=== PATIENT | male | born 1940 | race Caucasian/White ===

== ENCOUNTER 2022-09-28 12:01 | Emergency (ER) | payer MEDICARE, OTHER ==
[~2022-09-28] VITALS: Ht 177.8 cm; Wt 88.6 kg
[2022-09-28] MEDS ORDERED: TENO1TAB2 PO (12:14)
[2022-09-28] MEDS ORDERED: POTA-136 PO (12:14)
[2022-09-28 13:05] LABS: VENOUS BASE EXCESS 1.9 (-2.0-2.0); VENOUS HCO3 29.3 MEQ/L (23.0-27.0); VENOUS O2 SATURATION 49.8 % (60.0-80.0); VENOUS PARTIAL PRESSURE CO2 56.5 mmHg (38.0-50.0); VENOUS PARTIAL PRESSURE O2 28.1 mmHg (30.0-50.0); VENOUS PH 7.333 UNITS (7.330-7.430); VENOUS STANDARD HCO3 24.8 MEQ/L; VENOUS TOTAL CO2 31.1 MEQ/L (24.0-28.0)
[2022-09-28 13:13] LABS: BASO % 0.4 % (0.0-1.0); EOS # 0.1 10^3/uL (0.0-0.5); EOS % 1.7 % (0.0-3.0); HEMATOCRIT 46.2 % (42.0-52.0); HEMOGLOBIN 15.1 g/dl (13.5-17.5); LYMPH # 1.1 10^3/uL (1.5-5.0); LYMPH % 13.8 % (24.0-44.0); MEAN CORPUSCULAR HEMOGLOBIN 29.3 pg (27.0-33.0); MEAN CORPUSCULAR HGB CONC 32.7 g/dl (32.0-36.5); MEAN CORPUSCULAR VOLUME 89.5 fl (80.0-96.0); MONO # 0.5 10^3/uL (0.0-0.8); NEUTROPHILS # 6.2 10^3/uL (1.5-8.5); NEUTROPHILS % 77.7 % (36.0-66.0); PLATELET COUNT, AUTOMATED 204 10^3/uL (150-450); RED BLOOD COUNT 5.16 10^6/uL (4.30-6.10)
[2022-09-28 13:38] LABS: CK-MB VALUE MASS < 1.0 NG/ML (<3.6)
[2022-09-28 13:40] LABS: ALBUMIN 3.7 G/DL (3.2-5.2); ALKALINE PHOSPHATASE 73 U/L (46-116); ALT/SGPT 13 U/L (7.0-40); AST/SGOT 13 U/L (<34); BILIRUBIN,DIRECT 0.5 MG/DL (<0.4); BILIRUBIN,TOTAL 1.2 MG/DL (0.3-1.2); BLOOD UREA NITROGEN 20 MG/DL (9-23); CALCIUM LEVEL 8.8 MG/DL (8.3-10.6); CARBON DIOXIDE LEVEL 30 MMOL/L (20-31); CHLORIDE LEVEL 106 MMOL/L (98-107); CPK CREATINE PHOSPHOKINASE 31 U/L (46-171); CREATININE FOR GFR 0.82 MG/DL (0.70-1.30); GLOMERULAR FILTRATION RATE > 60.0 (>35); GLUCOSE, FASTING 116 MG/DL (74-106); MB/CK RELATIVE INDEX 3.22 (< OR =4); POTASSIUM SERUM 3.7 MMOL/L (3.5-5.1); SODIUM LEVEL 140 MMOL/L (136-145); TOTAL PROTEIN 6.9 G/DL (5.7-8.2)
[2022-09-28 13:41] LABS: THYROID STIMULATING HORMONE 3.185 uIU/ML (0.55-4.78); THYROXINE (T4) 8.5 UG/DL (4.5-10.9)
[2022-09-28] MEDS ORDERED: ISOVUE-370 76% 100ML VIAL As Ordered ONE (13:49)
[2022-09-28 14:48] LABS: CK-MB VALUE MASS < 1.0 NG/ML (<3.6)
[2022-09-28 14:49] LABS: CPK CREATINE PHOSPHOKINASE 36 U/L (46-171); MB/CK RELATIVE INDEX 2.77 (< OR =4)
[2022-09-28] MEDS: FUROSEMIDE 40MG/4ML VIAL IV ONE ×2 (15:50→16:25)
[2022-09-28] MEDS ORDERED: ALEV220T22 PO (16:13)
[2022-09-28] MEDS ORDERED: HOME MED LIST COMPLETE! XX SCH (16:15)
[2022-09-28 16:38] VITALS: BP 193/99
[2022-09-28] MEDS ORDERED: FURO20TA2 PO (16:49)
== END 2022-09-28 17:07 | disposition home or self-care (01) ==
LOC: M ED 12:01
DX: I50.9 Heart failure, unspecified (principal); J94.9 Pleural condition, unspecified; I31.39 Other pericardial effusion (noninflammatory); Z79.899 Other long term (current) drug therapy
CPT/HCPCS: 71045; 71275; 80048; 80076; 82550; 82553; 82803; 83605; 83880; 84436; 84443; 84484; 85025; 87040; 87486; 87581; 87633; 87798; 93005; 93041; 94760; 96374; 99285; Q9967

== ENCOUNTER → 2022-11-01 | Outpatient (CLI) | payer MEDICARE ==
[~2022-11-01] MED LIST: ALEV220T22 PO; FURO20TA2 PO; POTA-136 PO; TENO1TAB2 PO
== END ==
LOC: M RAD 10:33
DX: R59.0 Localized enlarged lymph nodes (principal)

== ENCOUNTER 2023-03-28 08:09 | Inpatient (IN) | payer MEDICARE ==
[~2023-03-28] VITALS: Ht 177.8 cm; Wt 78.5 kg
[2023-03-28] MEDS ORDERED: CARV25TA PO (08:31)
[2023-03-28] MEDS ORDERED: ENTR1TAB PO (08:33)
[2023-03-28 09:20] LABS: BASO % 0.5 % (0.0-1.0); EOS # 0.1 10^3/uL (0.0-0.5); EOS % 2.1 % (0.0-3.0); HEMATOCRIT 44.6 % (42.0-52.0); HEMOGLOBIN 14.4 g/dl (13.5-17.5); LYMPH # 0.6 10^3/uL (1.5-5.0); LYMPH % 9.9 % (24.0-44.0); MEAN CORPUSCULAR HGB CONC 32.3 g/dl (32.0-36.5); MEAN CORPUSCULAR VOLUME 89.7 fl (80.0-96.0); MONO # 0.4 10^3/uL (0.0-0.8); MONO % 7.4 % (2.0-8.0); NEUTROPHILS # 4.7 10^3/uL (1.5-8.5); NEUTROPHILS % 79.6 % (36.0-66.0); PLATELET COUNT, AUTOMATED 172 10^3/uL (150-450); RED BLOOD COUNT 4.97 10^6/uL (4.30-6.10); WHITE BLOOD COUNT 5.8 10^3/uL (4.0-10.0)
[2023-03-28] MEDS ORDERED: ENTRESTO 24-26MG TABLET (SACUBITRIL/VALSARTAN) PO ONE (09:20)
[2023-03-28] MEDS ORDERED: CARVedilol 12.5 MG TAB PO ONE (09:20)
[2023-03-28 09:30] LABS: LIPASE 26 U/L (12-53)
[2023-03-28 09:31] LABS: CPK CREATINE PHOSPHOKINASE 38 U/L (46-171)
[2023-03-28 09:32] LABS: ALBUMIN 3.5 G/DL (3.2-5.2); ALKALINE PHOSPHATASE 75 U/L (46-116); ALT/SGPT 17 U/L (7.0-40); AST/SGOT 11 U/L (<34); BILIRUBIN,DIRECT 0.6 MG/DL (<0.4); BILIRUBIN,TOTAL 1.5 MG/DL (0.3-1.2); BLOOD UREA NITROGEN 18 MG/DL (9-23); CALCIUM LEVEL 8.7 MG/DL (8.3-10.6); CARBON DIOXIDE LEVEL 27 MMOL/L (20-31); CHLORIDE LEVEL 106 MMOL/L (98-107); CK-MB VALUE MASS < 1.0 NG/ML (<3.6); CREATININE FOR GFR 0.92 MG/DL (0.70-1.30); GLOMERULAR FILTRATION RATE > 60.0 (>35); GLUCOSE, FASTING 119 MG/DL (74-106); MB/CK RELATIVE INDEX 2.63 (< OR =4); POTASSIUM SERUM 3.6 MMOL/L (3.5-5.1); SODIUM LEVEL 141 MMOL/L (136-145); TOTAL PROTEIN 6.6 G/DL (5.7-8.2)
[2023-03-28 09:33] LABS: THYROID STIMULATING HORMONE 4.178 uIU/ML (0.55-4.78)
[2023-03-28 09:34] LABS: FREE T4 1.42 NG/DL (0.89-1.76)
[2023-03-28 10:32] LABS: CPK CREATINE PHOSPHOKINASE 38 U/L (46-171)
[2023-03-28 10:33] LABS: CK-MB VALUE MASS < 1.0 NG/ML (<3.6); MB/CK RELATIVE INDEX 2.63 (< OR =4)
[2023-03-28] MEDS ORDERED: FUROSEMIDE 40MG/4ML VIAL IV ONE (10:45)
[2023-03-28] MEDS ORDERED: MED REC IN PROGRESS XX SCH (11:00)
[2023-03-28] MEDS ORDERED: LASI20TA3 PO (11:01)
[2023-03-28] MEDS ORDERED: ASPI81CH33 PO (11:01)
[2023-03-28] MEDS ORDERED: HOME MED LIST COMPLETE! XX SCH (11:10)
[2023-03-28] MEDS ORDERED: ACETAMINOPHEN TAB 650MG DOSE (2X325MG) PO PRN (11:50)
[2023-03-28] MEDS ORDERED: ISOVUE-370 76% 100ML VIAL As Ordered ONE (12:18)
[2023-03-28] MEDS: ASPIRIN 81MG CHEW TABLET PO SCH (13:27)
[2023-03-28] MEDS: POTASSIUM CHLORIDE 10MEQ SR TABLET PO SCH (13:31)
[2023-03-28] MEDS: FUROSEMIDE 40MG/4ML VIAL IV SCH (17:09)
[2023-03-28 17:50] VITALS: BP 146/99; TEMP 97.1; O2SAT 93
[2023-03-28] MEDS: FLUTICASONE PROP 0.05% NASAL SPRAY 16 GM (FLONASE) NARES SCH (18:08)
[2023-03-28 18:56] LABS: MAGNESIUM LEVEL 2.1 MG/DL (1.8-2.4)
[2023-03-28] MEDS: CARVedilol 12.5 MG TAB PO SCH (18:58)
[2023-03-28 20:00] VITALS: BP 130/70; TEMP 96.8; O2SAT 99
[2023-03-28] MEDS ORDERED: CARVedilol 12.5 MG TAB PO SCH (21:00)
[2023-03-29] VITALS (7 sets, daily range): BP systolic 103–134; BP diastolic 64–85; TEMP 96.5–97.7; O2SAT 95–98
[2023-03-29 06:41] LABS: HEMATOCRIT 43.4 % (42.0-52.0); HEMOGLOBIN 14.3 g/dl (13.5-17.5); MEAN CORPUSCULAR HEMOGLOBIN 28.9 pg (27.0-33.0); MEAN CORPUSCULAR HGB CONC 32.9 g/dl (32.0-36.5); MEAN CORPUSCULAR VOLUME 87.7 fl (80.0-96.0); PLATELET COUNT, AUTOMATED 153 10^3/uL (150-450); RED BLOOD COUNT 4.95 10^6/uL (4.30-6.10); WHITE BLOOD COUNT 4.9 10^3/uL (4.0-10.0)
[2023-03-29 07:04] LABS: BLOOD UREA NITROGEN 15 MG/DL (9-23); CALCIUM LEVEL 8.4 MG/DL (8.3-10.6); CARBON DIOXIDE LEVEL 28 MMOL/L (20-31); CHLORIDE LEVEL 105 MMOL/L (98-107); CREATININE FOR GFR 0.86 MG/DL (0.70-1.30); GLOMERULAR FILTRATION RATE > 60.0 (>35); GLUCOSE, FASTING 108 MG/DL (74-106); POTASSIUM SERUM 3.6 MMOL/L (3.5-5.1); SODIUM LEVEL 144 MMOL/L (136-145)
[2023-03-29] MEDS: FLUTICASONE PROP 0.05% NASAL SPRAY 16 GM (FLONASE) NARES SCH (08:48)
[2023-03-29] MEDS: POTASSIUM CHLORIDE 10MEQ SR TABLET PO SCH (08:48)
[2023-03-29] MEDS: ASPIRIN 81MG CHEW TABLET PO SCH (08:49)
[2023-03-29] MEDS: CARVedilol 12.5 MG TAB PO SCH ×2 (08:49→21:44)
[2023-03-29] MEDS: ENOXAPARIN 40MG/0.4ML SYRINGE (J1650 PER 10MG) SC SCH (08:50)
[2023-03-29] MEDS: FUROSEMIDE 40MG/4ML VIAL IV SCH ×2 (08:50→16:56)
[2023-03-29] MEDS ORDERED: POTASSIUM CHLORIDE 10MEQ SR TABLET PO ONE (17:50)
[2023-03-30] VITALS (7 sets, daily range): BP systolic 106–128; BP diastolic 56–85; TEMP 96.9–97.6; O2SAT 94–97
[2023-03-30 05:58] LABS: HEMOGLOBIN 13.7 g/dl (13.5-17.5); MEAN CORPUSCULAR HEMOGLOBIN 28.5 pg (27.0-33.0); MEAN CORPUSCULAR HGB CONC 32.6 g/dl (32.0-36.5); MEAN CORPUSCULAR VOLUME 87.3 fl (80.0-96.0); PLATELET COUNT, AUTOMATED 169 10^3/uL (150-450); RED BLOOD COUNT 4.81 10^6/uL (4.30-6.10); WHITE BLOOD COUNT 5.9 10^3/uL (4.0-10.0)
[2023-03-30 06:27] LABS: BLOOD UREA NITROGEN 18 MG/DL (9-23); CALCIUM LEVEL 8.5 MG/DL (8.3-10.6); CARBON DIOXIDE LEVEL 28 MMOL/L (20-31); CHLORIDE LEVEL 106 MMOL/L (98-107); CREATININE FOR GFR 0.83 MG/DL (0.70-1.30); GLOMERULAR FILTRATION RATE > 60.0 (>35); GLUCOSE, FASTING 94 MG/DL (74-106); MAGNESIUM LEVEL 1.9 MG/DL (1.8-2.4); POTASSIUM SERUM 3.4 MMOL/L (3.5-5.1); SODIUM LEVEL 143 MMOL/L (136-145)
[2023-03-30] MEDS: ENOXAPARIN 40MG/0.4ML SYRINGE (J1650 PER 10MG) SC SCH (08:27)
[2023-03-30] MEDS: POTASSIUM CHLORIDE 10MEQ SR TABLET PO SCH ×2 (08:27→20:27)
[2023-03-30] MEDS: ASPIRIN 81MG CHEW TABLET PO SCH (08:27)
[2023-03-30] MEDS: CARVedilol 12.5 MG TAB PO SCH ×2 (08:28→20:27)
[2023-03-30] MEDS: FLUTICASONE PROP 0.05% NASAL SPRAY 16 GM (FLONASE) NARES SCH (08:29)
[2023-03-30] MEDS: FUROSEMIDE 40MG/4ML VIAL IV SCH ×2 (08:39→16:08)
[2023-03-30] MEDS ORDERED: MIRALAX *UNIT DOSE* 17GM PACKET PO SCH (09:00)
[2023-03-30] MEDS ORDERED: POTA-151 PO (09:51)
[2023-03-30] MEDS ORDERED: LASI40TA9 PO (09:51)
[2023-03-30] MEDS ORDERED: JARD1TAB PO (10:48)
[2023-03-31 03:08] VITALS: BP 129/80; TEMP 98.7; O2SAT 97
[2023-03-31 04:24] LABS: HEMATOCRIT 45.1 % (42.0-52.0); MEAN CORPUSCULAR HGB CONC 33.3 g/dl (32.0-36.5); MEAN CORPUSCULAR VOLUME 87.2 fl (80.0-96.0); PLATELET COUNT, AUTOMATED 201 10^3/uL (150-450); RED BLOOD COUNT 5.17 10^6/uL (4.30-6.10); WHITE BLOOD COUNT 7.4 10^3/uL (4.0-10.0)
[2023-03-31 04:45] LABS: BLOOD UREA NITROGEN 23 MG/DL (9-23); CARBON DIOXIDE LEVEL 28 MMOL/L (20-31); CHLORIDE LEVEL 106 MMOL/L (98-107); CREATININE FOR GFR 0.99 MG/DL (0.70-1.30); GLOMERULAR FILTRATION RATE > 60.0 (>35); GLUCOSE, FASTING 98 MG/DL (74-106); POTASSIUM SERUM 3.7 MMOL/L (3.5-5.1); SODIUM LEVEL 144 MMOL/L (136-145)
== END 2023-03-31 06:42 | disposition other institution (70) | DRG 291 ==
LOC: EDBD 08:09 → M ED 08:09 → M ED INP 11:02 → ENRESERV 16:41 → M PCU 17:45
PROVIDERS: ADMIT Internal Medicine; ATTEND Internal Medicine
PROC: B246ZZZ Ultrasonography of Right and Left Heart (ICD-10-PCS; principal; 2023-03-29)
DX: I11.0 Hypertensive heart disease with heart failure (principal); I50.23 Acute on chronic systolic (congestive) heart failure; I16.9 Hypertensive crisis, unspecified; I31.9 Disease of pericardium, unspecified; B34.8 Other viral infections of unspecified site; I25.10 Atherosclerotic heart disease of native coronary artery without angina pectoris; I27.20 Pulmonary hypertension, unspecified; Z96.641 Presence of right artificial hip joint; Z87.891 Personal history of nicotine dependence; J06.9 Acute upper respiratory infection, unspecified; Z79.82 Long term (current) use of aspirin; Z79.899 Other long term (current) drug therapy

== ENCOUNTER → 2023-07-06 | Outpatient (CLI) | payer MEDICARE ==
[~2023-07-06] MED LIST changes: +ASPI81CH33 PO; +CARV25TA PO; +ENTR1TAB PO; +JARD1TAB PO; +LASI20TA3 PO; +LASI40TA9 PO; +POTA-151 PO
== END ==
LOC: M RAD 09:06
PROVIDERS: ATTEND Student in an Organized Health Care Education/Training Program
DX: Z96.641 Presence of right artificial hip joint (principal)
CPT/HCPCS: 78315; A9503

== ENCOUNTER 2024-01-04 23:55 | Inpatient (IN) | payer MEDICARE ==
[~2024-01-04] VITALS: Ht 177.8 cm; Wt 87.0 kg
[2024-01-04] MEDS: NS 1,000 ML IV ONE (23:30)
[2024-01-04] MEDS: AMIODARONE 150MG/3ML VIAL IVP STA (23:30)
[2024-01-05] MEDS: ASPIRIN 81MG CHEW TABLET PO ONE (00:05)
[2024-01-05] MEDS: METOPROLOL 5 MG/5 ML VIAL IV PRN (00:09)
[2024-01-05 00:22] LABS: VENOUS BASE EXCESS -2.1 (-2.0-2.0); VENOUS HCO3 22.9 MMOL/L (23.0-27.0); VENOUS O2 SATURATION 89.3 % (60.0-80.0); VENOUS PARTIAL PRESSURE CO2 39.8 mmHg (38.0-50.0); VENOUS PARTIAL PRESSURE O2 59.2 mmHg (30.0-50.0); VENOUS PH 7.377 UNITS (7.330-7.430); VENOUS STANDARD HCO3 22.6 MMOL/L; VENOUS TOTAL CO2 24.1 MMOL/L (24.0-28.0)
[2024-01-05 00:30] LABS: BASO % 0.2 % (0.0-1.0); EOS # 0.1 10^3/uL (0.0-0.5); EOS % 1.6 % (0.0-3.0); HEMATOCRIT 38.5 % (42.0-52.0); HEMOGLOBIN 12.8 g/dl (13.5-17.5); LYMPH # 0.6 10^3/uL (1.5-5.0); LYMPH % 7.5 % (24.0-44.0); MEAN CORPUSCULAR HEMOGLOBIN 30.2 pg (27.0-33.0); MEAN CORPUSCULAR HGB CONC 33.2 g/dl (32.0-36.5); MEAN CORPUSCULAR VOLUME 90.8 fl (80.0-96.0); MONO # 0.6 10^3/uL (0.0-0.8); MONO % 7.1 % (2.0-8.0); NEUTROPHILS # 6.8 10^3/uL (1.5-8.5); NEUTROPHILS % 83.2 % (36.0-66.0); PLATELET COUNT, AUTOMATED 146 10^3/uL (150-450); RED BLOOD COUNT 4.24 10^6/uL (4.30-6.10); WHITE BLOOD COUNT 8.1 10^3/uL (4.0-10.0)
[2024-01-05] MEDS ORDERED: FURO20TA2 PO (00:34)
[2024-01-05] MEDS: POTASSIUM CHLORIDE 10% LIQ 20MEQ/15ML UDC PO ONE (00:37)
[2024-01-05] MEDS: MAG SULF 1GM/100ML (MAG RUN) 1 GM in IV 1 EA IV ONE (00:38)
[2024-01-05 00:41] LABS: INR 1.5; PROTHROMBIN TIME 17.6 SECONDS (12.5-14.5)
[2024-01-05 00:45] LABS: ETHYL ALCOHOL (ETHANOL) < 0.003 % (0.000-0.010); LIPASE 33 U/L (12-53)
[2024-01-05 00:46] LABS: CK-MB VALUE MASS < 1.0 NG/ML (<3.6); CPK CREATINE PHOSPHOKINASE 45 U/L (46-171); MB/CK RELATIVE INDEX 2.22 (< OR =4)
[2024-01-05] MEDS ORDERED: ATOR40TA75 PO ×2 (00:46→02:45)
[2024-01-05] MEDS ORDERED: CLOP75TA2 PO (00:46)
[2024-01-05] MEDS ORDERED: POTA10CA70 PO (00:46)
[2024-01-05 00:47] LABS: ALBUMIN 3.3 G/DL (3.2-5.2); ALKALINE PHOSPHATASE 128 U/L (46-116); ALT/SGPT 77 U/L (7.0-40); AST/SGOT 62 U/L (<34); BILIRUBIN,DIRECT 0.3 MG/DL (<0.4); BILIRUBIN,TOTAL 0.7 MG/DL (0.3-1.2); BLOOD UREA NITROGEN 26 MG/DL (9-23); CALCIUM LEVEL 8.8 MG/DL (8.3-10.6); CARBON DIOXIDE LEVEL 23 MMOL/L (20-31); CHLORIDE LEVEL 110 MMOL/L (98-107); CREATININE FOR GFR 1.03 MG/DL (0.70-1.30); GLOMERULAR FILTRATION RATE > 60.0 (>35); GLUCOSE, FASTING 160 MG/DL (74-106); MAGNESIUM LEVEL 1.9 MG/DL (1.8-2.4); POTASSIUM SERUM 3.5 MMOL/L (3.5-5.1); SODIUM LEVEL 142 MMOL/L (136-145)
[2024-01-05 00:50] LABS: FREE T4 1.25 NG/DL (0.89-1.76)
[2024-01-05 00:51] LABS: THYROID STIMULATING HORMONE 3.919 uIU/ML (0.55-4.78)
[2024-01-05 02:00] LABS: CK-MB VALUE MASS < 1.0 NG/ML (<3.6)
[2024-01-05] MEDS ORDERED: MAALOX 30 ML SUSP *UDC PO PRN (02:05)
[2024-01-05] MEDS ORDERED: ACETAMINOPHEN TAB 650MG DOSE (2X325MG) PO PRN (02:05)
[2024-01-05 02:14] LABS: CPK CREATINE PHOSPHOKINASE 42 U/L (46-171); MB/CK RELATIVE INDEX 2.38 (< OR =4)
[2024-01-05] MEDS ORDERED: ASPI-615 PO (02:45)
[2024-01-05] MEDS ORDERED: POTA10TA67 PO (02:45)
[2024-01-05] MEDS ORDERED: HOME MED LIST COMPLETE! XX SCH (02:45)
[2024-01-05] MEDS ORDERED: MULT-40 PO (02:45)
[2024-01-05] MEDS ORDERED: CLOP75TA99 PO (02:45)
[2024-01-05] MEDS: AMIODARONE HCL 360 MG in IV 1 EA IV SCH ×2 (03:01→20:43)
[2024-01-05] MEDS: POTASSIUM CHLORIDE 10MEQ SR TABLET PO ONE (03:02)
[2024-01-05] MEDS ORDERED: HEPARIN SOD (PORCINE) 5000UNITS/ML 1ML VIAL/SYRINGE IV PRN (03:20)
[2024-01-05 03:50] LABS: AMPHETAMINES LEVEL URINE NEGATIVE (NEGATIVE); BARBITURATES URINE NEGATIVE (NEGATIVE); BENZODIAZEPINES URINE NEGATIVE (NEGATIVE); CANNABINOIDS URINE NEGATIVE (NEGATIVE); COCAINE METABOLITE URINE NEGATIVE (NEGATIVE); METHADONE URINE NEGATIVE (NEGATIVE); OPIATES URINE NEGATIVE (NEGATIVE); PHENCYCLIDINE URINE NEGATIVE (NEGATIVE)
[2024-01-05 04:19] LABS: HEMATOCRIT 39.2 % (42.0-52.0); HEMOGLOBIN 12.9 g/dl (13.5-17.5); MEAN CORPUSCULAR HEMOGLOBIN 30.4 pg (27.0-33.0); MEAN CORPUSCULAR HGB CONC 32.9 g/dl (32.0-36.5); MEAN CORPUSCULAR VOLUME 92.2 fl (80.0-96.0); PLATELET COUNT, AUTOMATED 141 10^3/uL (150-450); RED BLOOD COUNT 4.25 10^6/uL (4.30-6.10); WHITE BLOOD COUNT 7.1 10^3/uL (4.0-10.0)
[2024-01-05] MEDS: HEPARIN DRIP 25,000 UNITS in IV 1 EA IV SCH (04:35)
[2024-01-05 04:55] LABS: CK-MB VALUE MASS < 1.0 NG/ML (<3.6)
[2024-01-05 04:56] LABS: CPK CREATINE PHOSPHOKINASE 42 U/L (46-171); MB/CK RELATIVE INDEX 2.38 (< OR =4)
[2024-01-05 06:34] LABS: ALBUMIN 3.4 G/DL (3.2-5.2); ALKALINE PHOSPHATASE 130 U/L (46-116); ALT/SGPT 77 U/L (7.0-40); AST/SGOT 50 U/L (<34); BILIRUBIN,TOTAL 0.7 MG/DL (0.3-1.2); BLOOD UREA NITROGEN 24 MG/DL (9-23); CALCIUM LEVEL 8.8 MG/DL (8.3-10.6); CARBON DIOXIDE LEVEL 23 MMOL/L (20-31); CHLORIDE LEVEL 111 MMOL/L (98-107); CREATININE FOR GFR 0.94 MG/DL (0.70-1.30); GLOMERULAR FILTRATION RATE > 60.0 (>35); GLUCOSE, FASTING 121 MG/DL (74-106); POTASSIUM SERUM 4.3 MMOL/L (3.5-5.1); SODIUM LEVEL 140 MMOL/L (136-145); TOTAL PROTEIN 6.2 G/DL (5.7-8.2)
[2024-01-05 08:56] VITALS: BP 132/83; TEMP 97.2; O2SAT 98
[2024-01-05] MEDS: DOCUSATE SODIUM 100MG CAPSULE PO SCH (09:13)
[2024-01-05 09:23] VITALS: BP 122/69; TEMP 96.9; O2SAT 97
[2024-01-05 11:45] VITALS: BP 128/90; TEMP 98; O2SAT 98
[2024-01-05] MEDS: CLOPIDOGREL 75 MG TAB PO SCH (11:49)
[2024-01-05] MEDS: POTASSIUM CHLORIDE 10MEQ SR TABLET PO SCH (11:49)
[2024-01-05] MEDS: CARVedilol 12.5 MG TAB PO SCH (11:49)
[2024-01-05] MEDS: ENTRESTO 24-26MG TABLET (SACUBITRIL/VALSARTAN) PO SCH (11:49)
[2024-01-05] MEDS: FUROSEMIDE 20 MG TAB PO SCH (11:50)
[2024-01-05] MEDS: PANTOPRAZOLE 40MG TAB (PROTONIX) PO SCH (11:50)
[2024-01-05 16:00] VITALS: BP 130/100; TEMP 97; O2SAT 96
[2024-01-05 16:49] LABS: INR 1.5; PROTHROMBIN TIME 17.6 SECONDS (12.5-14.5)
[2024-01-05 19:06] VITALS: BP 126/82; TEMP 96.9; O2SAT 96
[2024-01-05] MEDS: AMIODARONE HCL 150 MG in IV 1 EA IV ONE (20:04)
[2024-01-05 20:14] VITALS: BP 130/70
[2024-01-05] MEDS: ATORVASTATIN 20 MG TAB PO SCH (22:00)
[2024-01-05 23:20] LABS: INR 1.39; PARTIAL THROMBOPLASTIN TIME 84.7 SECONDS (24.8-34.2); PROTHROMBIN TIME 16.6 SECONDS (12.5-14.5)
[2024-01-06] VITALS: BP 127/78; TEMP 96.6; O2SAT 97
[2024-01-06 04:00] VITALS: BP 152/74; TEMP 97; O2SAT 98
[2024-01-06 06:37] LABS: BASO % 0.3 % (0.0-1.0); EOS # 0.1 10^3/uL (0.0-0.5); EOS % 1.1 % (0.0-3.0); HEMATOCRIT 40.1 % (42.0-52.0); HEMOGLOBIN 13.4 g/dl (13.5-17.5); LYMPH # 0.6 10^3/uL (1.5-5.0); LYMPH % 6.5 % (24.0-44.0); MEAN CORPUSCULAR HEMOGLOBIN 30.6 pg (27.0-33.0); MEAN CORPUSCULAR HGB CONC 33.4 g/dl (32.0-36.5); MEAN CORPUSCULAR VOLUME 91.6 fl (80.0-96.0); MONO # 0.6 10^3/uL (0.0-0.8); MONO % 6.6 % (2.0-8.0); NEUTROPHILS # 7.8 10^3/uL (1.5-8.5); NEUTROPHILS % 85.2 % (36.0-66.0); PLATELET COUNT, AUTOMATED 146 10^3/uL (150-450); RED BLOOD COUNT 4.38 10^6/uL (4.30-6.10); WHITE BLOOD COUNT 9.1 10^3/uL (4.0-10.0)
[2024-01-06 07:12] LABS: ALBUMIN 3.3 G/DL (3.2-5.2); ALKALINE PHOSPHATASE 119 U/L (46-116); ALT/SGPT 58 U/L (7.0-40); AST/SGOT 20 U/L (<34); BILIRUBIN,DIRECT 0.4 MG/DL (<0.4); BILIRUBIN,TOTAL 0.9 MG/DL (0.3-1.2); BLOOD UREA NITROGEN 25 MG/DL (9-23); CALCIUM LEVEL 8.6 MG/DL (8.3-10.6); CARBON DIOXIDE LEVEL 21 MMOL/L (20-31); CHLORIDE LEVEL 108 MMOL/L (98-107); CREATININE FOR GFR 0.85 MG/DL (0.70-1.30); GLOMERULAR FILTRATION RATE > 60.0 (>35); GLUCOSE, FASTING 174 MG/DL (74-106); MAGNESIUM LEVEL 2.1 MG/DL (1.8-2.4); POTASSIUM SERUM 4.2 MMOL/L (3.5-5.1); SODIUM LEVEL 137 MMOL/L (136-145); TOTAL PROTEIN 6.1 G/DL (5.7-8.2)
[2024-01-06 08:02] VITALS: BP 127/97; TEMP 97.2; O2SAT 97
[2024-01-06] MEDS ORDERED: ELIQ5TAB PO (15:16)
[2024-01-06 20:00] VITALS: BP 132/64; TEMP 96.9; O2SAT 94
[2024-01-06] MEDS ORDERED: MAALOX 30 ML SUSP *UDC PO PRN (22:15)
[2024-01-06] MEDS ORDERED: ACETAMINOPHEN 500 MG TAB PO PRN (22:15)
[2024-01-06] MEDS ORDERED: ATORVASTATIN 20 MG TAB PO SCH (22:30)
[2024-01-06] MEDS ORDERED: APIXABAN 5 MG TAB (ELIQUIS) PO SCH (22:30)
[2024-01-06] MEDS: AMIODARONE 200 MG TAB (PACERONE) PO SCH (22:49)
[2024-01-06] MEDS: CARVedilol 12.5 MG TAB PO SCH (22:50)
[2024-01-06] MEDS: ENTRESTO 24-26MG TABLET (SACUBITRIL/VALSARTAN) PO SCH (22:50)
[2024-01-07] VITALS: BP 118/90; TEMP 97; O2SAT 95
[2024-01-07 05:19] VITALS: BP 123/90; TEMP 97.6; O2SAT 96
[2024-01-07 07:57] VITALS: BP 124/89; TEMP 97.6; O2SAT 94
[2024-01-07] MEDS: FUROSEMIDE 20 MG TAB PO SCH (09:00)
[2024-01-07] MEDS ORDERED: ASPIRIN 81MG CHEW TABLET PO SCH (09:00)
[2024-01-07] MEDS ORDERED: ASPIRIN 325 MG TAB PO SCH (09:00)
[2024-01-07] MEDS: PANTOPRAZOLE 40MG TAB (PROTONIX) PO SCH (09:28)
[2024-01-07] MEDS: POTASSIUM CHLORIDE 10MEQ SR TABLET PO SCH (09:28)
[2024-01-07] MEDS: DOCUSATE SODIUM 100MG CAPSULE PO SCH (09:28)
[2024-01-07] MEDS: CLOPIDOGREL 75 MG TAB PO SCH (09:28)
[2024-01-07 09:33] VITALS: BP 108/70
[2024-01-07] MEDS: CARVedilol 12.5 MG TAB PO SCH (09:33)
[2024-01-07] MEDS: ATORVASTATIN 20 MG TAB PO SCH (10:28)
[2024-01-07] MEDS ORDERED: AMIO200T49 PO (10:30)
[2024-01-08] MEDS ORDERED: APIXABAN 5 MG TAB (ELIQUIS) PO SCH (09:00)
== END 2024-01-07 12:58 | disposition home or self-care (01) | DRG 309 ==
LOC: M ED 23:55 → M ED INP 01-05 03:15 → M PCU 01-05 08:39 → UNDODISIN 01-06 09:38 → M PCU 01-06 19:48
PROVIDERS: ADMIT Family Medicine; ATTEND Family Medicine
PROC: B246ZZZ Ultrasonography of Right and Left Heart (ICD-10-PCS; principal; 2024-01-05)
DX: I47.20 Ventricular tachycardia, unspecified (principal); I50.22 Chronic systolic (congestive) heart failure; I48.91 Unspecified atrial fibrillation; I11.0 Hypertensive heart disease with heart failure; I25.10 Atherosclerotic heart disease of native coronary artery without angina pectoris; Z96.641 Presence of right artificial hip joint; F17.210 Nicotine dependence, cigarettes, uncomplicated; R74.01 Elevation of levels of liver transaminase levels; E78.5 Hyperlipidemia, unspecified; Z79.01 Long term (current) use of anticoagulants; Z79.899 Other long term (current) drug therapy; Z95.5 Presence of coronary angioplasty implant and graft

== ENCOUNTER → 2024-05-25 | Outpatient (CLI) | payer MEDICARE ==
[~2024-05-25] MED LIST changes: +AMIO200T49 PO; +ASPI-615 PO; +ATOR40TA75 PO; +CLOP75TA2 PO; +CLOP75TA99 PO; +ELIQ5TAB PO; +MULT-40 PO; +POTA10CA70 PO; +POTA10TA67 PO
[2024-05-25 18:04] LABS: BASO % 0.7 % (0.0-1.0); EOS # 0.1 10^3/uL (0.0-0.5); EOS % 1.6 % (0.0-3.0); HEMATOCRIT 41.2 % (42.0-52.0); HEMOGLOBIN 12.8 g/dl (13.5-17.5); LYMPH # 0.5 10^3/uL (1.5-5.0); LYMPH % 9.2 % (24.0-44.0); MEAN CORPUSCULAR HEMOGLOBIN 28.1 pg (27.0-33.0); MEAN CORPUSCULAR HGB CONC 31.1 g/dl (32.0-36.5); MEAN CORPUSCULAR VOLUME 90.5 fl (80.0-96.0); MONO # 0.5 10^3/uL (0.0-0.8); MONO % 9.2 % (2.0-8.0); NEUTROPHILS # 4.5 10^3/uL (1.5-8.5); NEUTROPHILS % 78.8 % (36.0-66.0); PLATELET COUNT, AUTOMATED 232 10^3/uL (150-450); RED BLOOD COUNT 4.55 10^6/uL (4.30-6.10); WHITE BLOOD COUNT 5.7 10^3/uL (4.0-10.0)
[2024-05-25 18:31] LABS: ALBUMIN 3.4 G/DL (3.2-5.2); ALKALINE PHOSPHATASE 118 U/L (40-129); ALT/SGPT 19 U/L (7.0-40); AST/SGOT 13 U/L (<34); BILIRUBIN,TOTAL 1.4 MG/DL (0.3-1.2); BLOOD UREA NITROGEN 25 MG/DL (9-23); CALCIUM LEVEL 9.4 MG/DL (8.3-10.6); CARBON DIOXIDE LEVEL 29 MMOL/L (20-31); CHLORIDE LEVEL 112 MMOL/L (98-107); CREATININE FOR GFR 1.05 MG/DL (0.70-1.30); GLOMERULAR FILTRATION RATE > 60.0 (>35); GLUCOSE, FASTING 90 MG/DL (74-106); POTASSIUM SERUM 3.9 MMOL/L (3.5-5.1); SODIUM LEVEL 149 MMOL/L (136-145); TOTAL PROTEIN 6.9 G/DL (5.7-8.2)
== END ==
LOC: M PLALAB 14:08
PROVIDERS: ATTEND Internal Medicine Cardiovascular Disease
DX: I48.19 Other persistent atrial fibrillation (principal); Z79.01 Long term (current) use of anticoagulants; I50.9 Heart failure, unspecified

== ENCOUNTER → 2025-04-24 | Outpatient (CLI) | payer MEDICARE ==
[~2025-04-24] MED LIST changes: -AMIO200T49 PO; +AMIO200T54 PO; +DOCU100C16 PO; +FERR32TA PO; +SENN-186 PO; +TORS20TA2 PO
== END ==
LOC: M RAD 13:26
PROVIDERS: ATTEND Nurse Practitioner Family
DX: R10.32 Left lower quadrant pain (principal); K40.90 Unilateral inguinal hernia, without obstruction or gangrene, not specified as recurrent

== ENCOUNTER 2025-05-13 09:00 | Day surgery (SDC) | payer MEDICARE ==
[~2025-05-13] VITALS: Ht 177.8 cm; Wt 78.6 kg
[~2025-05-13 09:00] MED LIST changes: +LR 1,000 ML IV SCH; +MIDAZOLAM INJ 2 MG/2 ML VIAL As Ordered ONE
[2025-05-13] MEDS: PHENYLEPHRINE 2.5% OPHTH SOL 2ML OS SCH (10:04)
[2025-05-13] MEDS: CYCLOPENTOLATE 1% OPHTH SOLN 2 ML BTL OS SCH (10:04)
[2025-05-13] MEDS: TETRACAINE 0.5% OPHTH SOLN 4ML OS SCH (10:04)
[2025-05-13] MEDS: FLURBIPROFEN 0.03% OPHTH SOLN 2.5 ML OS SCH (10:04)
[2025-05-13] MEDS: LIDOCAINE 1% SDV 5 ML VIAL As Ordered ONE (11:19)
[2025-05-13] MEDS: CEFUROXIME 1 MG/0.1 ML INTRACAMERAL INJ As Ordered ONE (11:19)
[2025-05-13 11:33] VITALS: BP 137/77; TEMP 97.4; O2SAT 96
== END 2025-05-13 11:49 | disposition home or self-care (01) ==
LOC: M SDC 09:00
PROVIDERS: ATTEND Ophthalmology
DX: H25.12 Age-related nuclear cataract, left eye (principal); I48.91 Unspecified atrial fibrillation; I10 Essential (primary) hypertension; E78.00 Pure hypercholesterolemia, unspecified; Z95.5 Presence of coronary angioplasty implant and graft; Z79.899 Other long term (current) drug therapy; Z79.01 Long term (current) use of anticoagulants; D50.9 Iron deficiency anemia, unspecified; Z87.891 Personal history of nicotine dependence; Z95.810 Presence of automatic (implantable) cardiac defibrillator
CPT/HCPCS: 66984; J0697; J2250; J3010; V2632